=== PATIENT | female | born 1930 | race Caucasian/White ===

== ENCOUNTER 2016-08-26 11:55 | Emergency (ER) | payer MEDICARE, OTHER ==
[2016-05-26 09:46] VITALS: BMI 27.4
[~2016-08-26 11:55] MED LIST: AMITRIPTYLINE100 MG PO; ARICEPT10 MG PO; ARTANE2 MG; ARTANE2 MG PO; ATIVAN0.5 MG PO; AXID150 MG PO; BAYER CHEWABLE81 MG; BAYER CHEWABLE81 MG PO; CARAFATE1 G PO; CATAPRES0.1 MG; CATAPRES0.1 MG PO; CELEBREX200 MG PO; DULCOLAX10 MG/SUPP RC; ESTRACE1 MG PO; FERROUS SULFAT325 MG PO; FLOMAX0.4 MG PO; HYDROCODON-ACE1 EAC7 PO; KLOR-CON M2020 MEQ PO; LEVAQUIN 5500 MG/100 IV; MACROBID100 MG PO; MIRALAX17 GM PO; MYSOLINE 50 MG50 MG PO; NYSTATIN ORAL SU5 ML PO; ONDANSETRON4 MG/2 M3 IV; PAMELOR10 MG PO; PLAVIX75 MG PO; PROTONIX40 MG PO; SENOKOT-S TABLE1 TAB PO; SODIUM CL 0.91000 ML IV; SYNTHROID112 MCG PO; SYNTHROID125 MCG PO; TRI-VI-SOL50 ML PO; TYLENOL 325 MG325 MG PO; TYLENOL 8 HOUR650 MG PO; TYLENOL325 MG PO; ULTRAM50 MG PO; URECHOLINE25 MG PO; ZOFRAN4 MG PO
[2016-08-26 12:42] LABS: APPEARANCE CLEAR (CLEAR); COLOR STRAW (YELLOW); LEUKOCYTE ESTERASE 2+ (NEGATIVE); SPECIFIC GRAVITY 1.005 (1.005-1.020)
[2016-08-26 12:43] LABS: BILIRUBIN NEGATIVE (NEGATIVE); GLUCOSE NEGATIVE (NEGATIVE); KETONE NEGATIVE (NEGATIVE); NITRITE POSITIVE (NEGATIVE); PROTEIN NEGATIVE (NEGATIVE); UROBILINOGEN NORMAL (NORMAL)
[2016-08-26 12:44] LABS: BACTERIA MODERATE /hpf (NONE SEEN); EPITHELIAL CELLS 0-5 /hpf (0-5); RED CELLS - URINE 0-5 /hpf (0-5); WHITE CELLS - URINE 0-5 /hpf (0-5)
[2016-08-26 12:49] LABS: BASOPHILS 1.1 % (0.0-2.0); EOSINOPHILS 3.2 % (0-7); HEMATOCRIT 34.5 % (36.0-48.0); HEMOGLOBIN 10.3 g/dL (12-16); IMMATURE GRANULOCYTES 0.1 % (0-5); LYMPHOCYTES 27.1 % (15-50); MCH 21.8 pg (26.0-34.0); MCHC 29.9 g/dL (31.0-37.0); MCV 73.1 fL (80.0-100.0); MEAN PLATELET VOLUME 10.8 fL (7.4-10.4); MONOCYTES 6.2 % (2-11); NEUTROPHILS 62.3 % (40-80); PLATELET COUNT 403 10x3/uL (130-400); RBC 4.72 10x6/uL (4.00-5.40); RDW 18.5 % (11.5-14.5); WBC 7.9 10x3/uL (4.8-10.8)
[2016-08-26 13:16] LABS: ALBUMIN 3.3 g/dL (3.4-5.0); ANION GAP 10.8 mmol/L (8-16); BILIRUBIN - TOTAL 0.29 mg/dL (0.2-1.3); CALCIUM 8.8 mg/dL (8.5-10.1); CARBON DIOXIDE 29.6 mmol/L (21.0-32.0); CREATININE - SERUM 0.9 mg/dL (0.6-1.3); POTASSIUM - SERUM 4.4 mmol/L (3.5-5.1); PROTEIN - SERUM 6.6 g/dL (6.4-8.2)
== END 2016-08-26 14:50 | disposition home or self-care (01) ==
LOC: D.ER 11:55
PROVIDERS: Emergency Medicine
DX: R53.1 Weakness (principal); D64.9 Anemia, unspecified; N39.0 Urinary tract infection, site not specified; G30.9 Alzheimer's disease, unspecified; F02.80 Dementia in other diseases classified elsewhere, unspecified severity, without behavioral disturbance, psychotic disturbance, mood disturbance, and anxiety; I10 Essential (primary) hypertension; G20 Parkinson's disease

== ENCOUNTER 2016-09-28 19:20 | Emergency (ER) | payer MEDICARE, OTHER ==
[2016-05-26 09:46] VITALS: BMI 27.4
== END 2016-09-28 20:05 | disposition home or self-care (01) ==
LOC: D.ER 19:20
DX: T83.9XXA Unspecified complication of genitourinary prosthetic device, implant and graft, initial encounter (principal); F03.90 Unspecified dementia, unspecified severity, without behavioral disturbance, psychotic disturbance, mood disturbance, and anxiety

== ENCOUNTER 2016-10-13 19:42 | Emergency (ER) | payer MEDICARE, OTHER ==
[2016-05-26 09:46] VITALS: BMI 27.4
[2016-10-13 20:34] LABS: BASOPHILS 0.3 % (0.0-2.0); EOSINOPHILS 0.3 % (0-7); HEMATOCRIT 33.3 % (36.0-48.0); IMMATURE GRANULOCYTES 0.3 % (0-5); LYMPHOCYTES 19.9 % (15-50); MONOCYTES 8.4 % (2-11); NEUTROPHILS 70.8 % (40-80); RBC 4.76 10x6/uL (4.00-5.40); RDW 20.5 % (11.5-14.5); WBC 11.8 10x3/uL (4.8-10.8)
[2016-10-13 20:46] LABS: PLATELET COUNT 231 10x3/uL (130-400)
[2016-10-13 21:05] LABS: ALBUMIN 3.5 g/dL (3.4-5.0); ANION GAP 13.8 mmol/L (8-16); BILIRUBIN - TOTAL 0.46 mg/dL (0.2-1.3); CALCIUM 8.8 mg/dL (8.5-10.1); CARBON DIOXIDE 24.1 mmol/L (21.0-32.0); CREATININE - SERUM 0.9 mg/dL (0.6-1.3); POTASSIUM - SERUM 3.9 mmol/L (3.5-5.1); PROTEIN - SERUM 7.1 g/dL (6.4-8.2)
== END 2016-10-13 21:56 | disposition home or self-care (01) ==
LOC: D.ER 19:42
PROVIDERS: Emergency Medicine
DX: J20.9 Acute bronchitis, unspecified (principal); G20 Parkinson's disease; F17.200 Nicotine dependence, unspecified, uncomplicated

== ENCOUNTER 2016-10-16 06:54 | Emergency (ER) | payer MEDICARE, OTHER ==
[2016-05-26 09:46] VITALS: BMI 27.4
== END 2016-10-16 08:54 | disposition home or self-care (01) ==
LOC: D.ER 06:54
DX: F03.90 Unspecified dementia, unspecified severity, without behavioral disturbance, psychotic disturbance, mood disturbance, and anxiety (principal); W19.XXXA Unspecified fall, initial encounter; Y93.89 Activity, other specified; Y92.129 Unspecified place in nursing home as the place of occurrence of the external cause; G20 Parkinson's disease; I10 Essential (primary) hypertension

== ENCOUNTER 2016-10-28 12:58 | Emergency (ER) | payer MEDICARE, OTHER ==
[2016-05-26 09:46] VITALS: BMI 27.4
[2016-10-28 13:43] LABS: BASOPHILS 1.1 % (0.0-2.0); EOSINOPHILS 4.6 % (0-7); HEMATOCRIT 34.6 % (36.0-48.0); HEMOGLOBIN 10.2 g/dL (12-16); IMMATURE GRANULOCYTES 0.3 % (0-5); MCH 20.8 pg (26.0-34.0); MCHC 29.5 g/dL (31.0-37.0); MCV 70.5 fL (80.0-100.0); MONOCYTES 8.1 % (2-11); NEUTROPHILS 60.9 % (40-80); RBC 4.91 10x6/uL (4.00-5.40); RDW 22.2 % (11.5-14.5); WBC 9.2 10x3/uL (4.8-10.8)
[2016-10-28 13:47] LABS: PLATELET COUNT 427 10x3/uL (130-400)
[2016-10-28 13:59] LABS: CALC OSMOLALITY 285 mosm/kg (275-300); CALCIUM 8.6 mg/dL (8.5-10.1); CARBON DIOXIDE 26.9 mmol/L (21.0-32.0); CHLORIDE - SERUM 106 mmol/L (98-107); GLUCOSE 93 mg/dL (74-106); POTASSIUM - SERUM 3.7 mmol/L (3.5-5.1); SODIUM 143 mmol/L (136-145); TROPONIN-I < 0.017 ng/mL (0.000-0.060); UREA NITROGEN 15 mg/dL (7-18); eGFR NON AFRICAN AMERICAN 56 mL/min (90-120)
== END 2016-10-28 15:10 | disposition home or self-care (01) ==
LOC: D.ER 12:58
PROVIDERS: Nurse Practitioner Acute Care
DX: Z03.89 Encounter for observation for other suspected diseases and conditions ruled out (principal); G30.9 Alzheimer's disease, unspecified; F02.80 Dementia in other diseases classified elsewhere, unspecified severity, without behavioral disturbance, psychotic disturbance, mood disturbance, and anxiety; I10 Essential (primary) hypertension; G20 Parkinson's disease

== ENCOUNTER 2016-11-16 18:25 | Emergency (ER) | payer MEDICARE, OTHER ==
[2016-05-26 09:46] VITALS: BMI 27.4
[2016-11-16 19:24] LABS: BASOPHILS 1.3 % (0.0-2.0); EOSINOPHILS 5.2 % (0-7); HEMATOCRIT 35.9 % (36.0-48.0); HEMOGLOBIN 10.6 g/dL (12-16); LYMPHOCYTES 32.8 % (15-50); MCH 21.5 pg (26.0-34.0); MCHC 29.5 g/dL (31.0-37.0); MCV 72.8 fL (80.0-100.0); MONOCYTES 8.6 % (2-11); NEUTROPHILS 52.1 % (40-80); PLATELET COUNT 362 10x3/uL (130-400); RBC 4.93 10x6/uL (4.00-5.40); RDW 21.9 % (11.5-14.5); WBC 7.4 10x3/uL (4.8-10.8)
[2016-11-16 19:41] LABS: ALBUMIN 3.3 g/dL (3.4-5.0); ALKALINE PHOSPHATASE 79 U/L (46-116); ALT (SGPT) 20 U/L (10-68); BILIRUBIN - TOTAL 0.25 mg/dL (0.2-1.3); CALC OSMOLALITY 280 mosm/kg (275-300); CALCIUM 8.7 mg/dL (8.5-10.1); CARBON DIOXIDE 27.2 mmol/L (21.0-32.0); CHLORIDE - SERUM 106 mmol/L (98-107); CREATININE - SERUM 1.1 mg/dL (0.6-1.3); GLUCOSE 97 mg/dL (74-106); POTASSIUM - SERUM 4.9 mmol/L (3.5-5.1); PROTEIN - SERUM 6.7 g/dL (6.4-8.2); SODIUM 140 mmol/L (136-145); UREA NITROGEN 17 mg/dL (7-18); eGFR NON AFRICAN AMERICAN 50 mL/min (90-120)
[2016-11-16 19:55] LABS: CHOL - HDL RATIO 2.7 ratio (2.3-4.1); CHOLESTEROL, TOTAL 165 mg/dL (0-200); CKMB 0.5 U/L (0.0-3.6); CREATINE KINASE 72 UL (21-215); HDL CHOLESTEROL 61 mg/dL (32-96); LDL CHOLESTEROL 96 mg/dL (0-100); LDL-HDL RATIO 1.6 ratio (1.5-3.5); TRIGLYCERIDE 44 mg/dL (30-200)
[2016-11-16 19:57] LABS: TROPONIN-I < 0.017 ng/mL (0.000-0.060)
== END 2016-11-16 20:43 | disposition home or self-care (01) ==
LOC: D.ER 18:25
PROVIDERS: Emergency Medicine
DX: R07.89 Other chest pain (principal); W19.XXXA Unspecified fall, initial encounter; Y93.89 Activity, other specified; Y92.129 Unspecified place in nursing home as the place of occurrence of the external cause; G30.9 Alzheimer's disease, unspecified; F02.80 Dementia in other diseases classified elsewhere, unspecified severity, without behavioral disturbance, psychotic disturbance, mood disturbance, and anxiety; I10 Essential (primary) hypertension; G20 Parkinson's disease

== ENCOUNTER 2016-11-19 17:47 | Emergency (ER) | payer MEDICARE, OTHER ==
[2016-05-26 09:46] VITALS: BMI 27.4
[2016-11-19 19:54] LABS: APPEARANCE HAZY (CLEAR); BILIRUBIN NEGATIVE (NEGATIVE); COLOR STRAW (YELLOW); GLUCOSE NEGATIVE (NEGATIVE); KETONE NEGATIVE (NEGATIVE); LEUKOCYTE ESTERASE 1+ (NEGATIVE); NITRITE NEGATIVE (NEGATIVE); PROTEIN TRACE mg/dL (NEGATIVE); SPECIFIC GRAVITY 1.005 (1.005-1.020); UROBILINOGEN NORMAL (NORMAL)
[2016-11-19 19:55] LABS: BACTERIA FEW /hpf (NONE SEEN); MUCUS <1+ /lpf (NONE SEEN); RED CELLS - URINE OCC /hpf (0-5)
== END 2016-11-19 21:03 | disposition home or self-care (01) ==
LOC: D.ER 17:47
PROVIDERS: Nurse Practitioner Family
DX: N39.0 Urinary tract infection, site not specified (principal); I10 Essential (primary) hypertension; G30.9 Alzheimer's disease, unspecified; F02.80 Dementia in other diseases classified elsewhere, unspecified severity, without behavioral disturbance, psychotic disturbance, mood disturbance, and anxiety; G20 Parkinson's disease

== ENCOUNTER → 2017-01-02 18:20 | Outpatient (CLI) | payer MEDICARE, OTHER ==
[2016-05-26 09:46] VITALS: BMI 27.4
[2017-01-02 19:46] LABS: APPEARANCE CLOUDY (CLEAR); COLOR DK YELLOW (YELLOW); LEUKOCYTE ESTERASE 1+ (NEGATIVE); NITRITE NEGATIVE (NEGATIVE); PROTEIN 1+ mg/dL (NEGATIVE)
[2017-01-02 19:47] LABS: BILIRUBIN NEGATIVE (NEGATIVE); GLUCOSE NEGATIVE (NEGATIVE); KETONE NEGATIVE (NEGATIVE)
[2017-01-02 19:48] LABS: BACTERIA MODERATE /hpf (NONE SEEN); EPITHELIAL CELLS 0-5 /hpf (0-5); RED CELLS - URINE 0-5 /hpf (0-5); WHITE CELLS - URINE 0-5 /hpf (0-5)
[2017-01-02 19:49] LABS: AMORPHOUS SEDIMENT <1+ /lpf (NONE SEEN)
== END | disposition home or self-care (01) ==
LOC: D.LABREF 18:20
PROVIDERS: Emergency Medicine
DX: N39.0 Urinary tract infection, site not specified (principal)

== ENCOUNTER 2017-03-11 20:51 | Emergency (ER) | payer MEDICARE, OTHER ==
[2016-05-26 09:46] VITALS: BMI 27.4
[2017-03-11 22:11] LABS: BASOPHILS 0.2 % (0-2); EOSINOPHILS 1.3 % (0-7); HEMATOCRIT 39.5 % (36.0-48.0); HEMOGLOBIN 12.1 g/dL (12-16); IMMATURE GRANULOCYTES 0.2 % (0-5); LYMPHOCYTES 15.4 % (15-50); MCH 21.8 pg (26.0-34.0); MCHC 30.6 g/dL (31.0-37.0); MCV 71.2 fL (80.0-100.0); MEAN PLATELET VOLUME 10.9 fL (7.4-10.4); MONOCYTES 4.7 % (2-11); NEUTROPHILS 78.2 % (40-80); RBC 5.55 10x6/uL (4.00-5.40); RDW 19.7 % (11.5-14.5); WBC 12.2 10x3/uL (4.8-10.8)
[2017-03-11 22:12] LABS: PLATELET COUNT 477 10x3/uL (130-400)
[2017-03-11 22:25] LABS: ALBUMIN 3.4 g/dL (3.4-5.0); ANION GAP 11.2 mmol/L (8-16); BILIRUBIN - TOTAL 0.3 mg/dL (0.2-1.3); CALCIUM 9.2 mg/dL (8.5-10.1); CARBON DIOXIDE 28.5 mmol/L (21.0-32.0); POTASSIUM - SERUM 3.7 mmol/L (3.5-5.1); PROTEIN - SERUM 7.6 g/dL (6.4-8.2)
== END 2017-03-11 23:18 | disposition home or self-care (01) ==
LOC: D.ER 20:51
PROVIDERS: Nurse Practitioner Acute Care
DX: J20.9 Acute bronchitis, unspecified (principal); G30.9 Alzheimer's disease, unspecified; F02.80 Dementia in other diseases classified elsewhere, unspecified severity, without behavioral disturbance, psychotic disturbance, mood disturbance, and anxiety; I10 Essential (primary) hypertension; R05 Cough; R09.89 Other specified symptoms and signs involving the circulatory and respiratory systems; G20 Parkinson's disease

== ENCOUNTER → 2017-03-24 20:37 | Outpatient (CLI) | payer MEDICARE, OTHER ==
[2016-05-26 09:46] VITALS: BMI 27.4
[2017-03-24 22:04] LABS: APPEARANCE HAZY (CLEAR); BILIRUBIN NEGATIVE (NEGATIVE); COLOR YELLOW (YELLOW); GLUCOSE NEGATIVE (NEGATIVE); KETONE NEGATIVE (NEGATIVE); LEUKOCYTE ESTERASE TRACE (NEGATIVE); NITRITE NEGATIVE (NEGATIVE); PROTEIN NEGATIVE (NEGATIVE); SPECIFIC GRAVITY 1.005 (1.005-1.020); UROBILINOGEN NORMAL (NORMAL)
[2017-03-24 22:08] LABS: BACTERIA FEW /hpf (NONE SEEN); EPITHELIAL CELLS 0-5 /hpf (0-5); RED CELLS - URINE OCC /hpf (0-5); WHITE CELLS - URINE 0-5 /hpf (0-5)
[2017-03-24 22:09] LABS: TRIPLE PHOSPHATE CRYSTALS 25-50 /hpf (NONE SEEN)
== END | disposition home or self-care (01) ==
LOC: D.LABREF 20:37
PROVIDERS: Emergency Medicine
DX: Z46.6 Encounter for fitting and adjustment of urinary device (principal); N31.8 Other neuromuscular dysfunction of bladder

== ENCOUNTER 2017-07-09 20:58 | Emergency (ER) | payer MEDICARE, OTHER ==
[2016-05-26 09:46] VITALS: BMI 27.4
[2017-07-09 21:29] LABS: BASOPHILS 0.5 % (0-2); EOSINOPHILS 1.9 % (0-7); HEMATOCRIT 35.2 % (36.0-48.0); HEMOGLOBIN 10.8 g/dL (12-16); IMMATURE GRANULOCYTES 0.2 % (0-5); LYMPHOCYTES 23.3 % (15-50); MCH 21.2 pg (26.0-34.0); MCHC 30.7 g/dL (31.0-37.0); MCV 69.2 fL (80.0-100.0); MEAN PLATELET VOLUME 10.5 fL (7.4-10.4); MONOCYTES 10.5 % (2-11); NEUTROPHILS 63.6 % (40-80); PLATELET COUNT 407 10x3/uL (130-400); RBC 5.09 10x6/uL (4.00-5.40); RDW 19.1 % (11.5-14.5); WBC 8.1 10x3/uL (4.8-10.8)
[2017-07-09 21:34] LABS: APPEARANCE CLEAR (CLEAR); BILIRUBIN NEGATIVE (NEGATIVE); COLOR STRAW (YELLOW); GLUCOSE NEGATIVE (NEGATIVE); KETONE NEGATIVE (NEGATIVE); NITRITE NEGATIVE (NEGATIVE); PROTEIN NEGATIVE (NEGATIVE); UROBILINOGEN NORMAL (NORMAL)
[2017-07-09 21:38] LABS: RED CELLS - URINE OCC /hpf (0-5); WHITE CELLS - URINE 0-5 /hpf (0-5)
[2017-07-09 21:39] LABS: AMORPHOUS SEDIMENT <1+ /lpf (NONE SEEN); BACTERIA FEW /hpf (NONE SEEN)
[2017-07-09 21:40] LABS: ALBUMIN 3.4 g/dL (3.4-5.0); ANION GAP 16.9 mmol/L (8-16); BILIRUBIN - TOTAL 0.36 mg/dL (0.2-1.3); CALCIUM 8.3 mg/dL (8.5-10.1); CREATININE - SERUM 0.9 mg/dL (0.6-1.3); POTASSIUM - SERUM 3.9 mmol/L (3.5-5.1); PROTEIN - SERUM 7.4 g/dL (6.4-8.2)
== END 2017-07-09 23:07 | disposition home or self-care (01) ==
LOC: D.ER 20:58
PROVIDERS: Emergency Medicine
DX: R19.7 Diarrhea, unspecified (principal); F03.90 Unspecified dementia, unspecified severity, without behavioral disturbance, psychotic disturbance, mood disturbance, and anxiety; I10 Essential (primary) hypertension; G20 Parkinson's disease

== ENCOUNTER 2017-07-14 16:36 | Emergency (ER) | payer MEDICARE, OTHER ==
[2016-05-26 09:46] VITALS: BMI 27.4
== END 2017-07-14 21:15 | disposition home or self-care (01) ==
LOC: D.ER 16:36
DX: K59.00 Constipation, unspecified (principal)

== ENCOUNTER → 2017-08-04 19:54 | Outpatient (CLI) | payer MEDICARE, OTHER ==
[2016-05-26 09:46] VITALS: BMI 27.4
[2017-08-04 21:09] LABS: APPEARANCE CLEAR (CLEAR); BILIRUBIN NEGATIVE (NEGATIVE); COLOR YELLOW (YELLOW); GLUCOSE NEGATIVE (NEGATIVE); KETONE NEGATIVE (NEGATIVE); NITRITE NEGATIVE (NEGATIVE); PROTEIN NEGATIVE (NEGATIVE); UROBILINOGEN NORMAL (NORMAL)
[2017-08-04 21:10] LABS: BACTERIA MODERATE /hpf (NONE SEEN); EPITHELIAL CELLS OCC /hpf (0-5); WHITE CELLS - URINE 0-5 /hpf (0-5)
== END | disposition home or self-care (01) ==
LOC: D.LABREF 19:54
PROVIDERS: Family Medicine
DX: Z87.440 Personal history of urinary (tract) infections (principal); Z46.6 Encounter for fitting and adjustment of urinary device

== ENCOUNTER → 2017-08-20 13:09 | Outpatient (CLI) | payer MEDICARE, OTHER ==
[2016-05-26 09:46] VITALS: BMI 27.4
[2017-08-20 14:07] LABS: APPEARANCE CLEAR (CLEAR); BILIRUBIN NEGATIVE (NEGATIVE); COLOR YELLOW (YELLOW); GLUCOSE NEGATIVE (NEGATIVE); KETONE NEGATIVE (NEGATIVE); NITRITE NEGATIVE (NEGATIVE); PROTEIN NEGATIVE (NEGATIVE); UROBILINOGEN NORMAL (NORMAL)
== END | disposition home or self-care (01) ==
LOC: D.LABREF 13:09
PROVIDERS: Family Medicine
DX: Z46.6 Encounter for fitting and adjustment of urinary device (principal); Z87.448 Personal history of other diseases of urinary system

== ENCOUNTER 2017-08-20 16:21 | Emergency (ER) | payer MEDICARE, OTHER ==
[2016-05-26 09:46] VITALS: BMI 27.4
[2017-08-20 22:02] LABS: APPEARANCE CLEAR (CLEAR); BILIRUBIN NEGATIVE (NEGATIVE); COLOR YELLOW (YELLOW); GLUCOSE NEGATIVE (NEGATIVE); KETONE NEGATIVE (NEGATIVE); NITRITE NEGATIVE (NEGATIVE); PROTEIN NEGATIVE (NEGATIVE); SPECIFIC GRAVITY 1.015 (1.005-1.020); UROBILINOGEN NORMAL (NORMAL)
== END 2017-08-20 22:25 | disposition home or self-care (01) ==
LOC: D.ER 16:21
PROVIDERS: Nurse Practitioner Family
DX: T83.89XA Other specified complication of genitourinary prosthetic devices, implants and grafts, initial encounter (principal)

== ENCOUNTER → 2017-08-26 10:41 | Outpatient (CLI) | payer MEDICARE, OTHER ==
[2016-05-26 09:46] VITALS: BMI 27.4
[2017-08-26 11:19] LABS: APPEARANCE CLEAR (CLEAR); BILIRUBIN NEGATIVE (NEGATIVE); COLOR YELLOW (YELLOW); GLUCOSE NEGATIVE (NEGATIVE); KETONE NEGATIVE (NEGATIVE); NITRITE NEGATIVE (NEGATIVE); PROTEIN NEGATIVE (NEGATIVE); UROBILINOGEN NORMAL (NORMAL); WHITE CELLS - URINE 0-5 /hpf (0-5)
[2017-08-26 11:20] LABS: BACTERIA MODERATE /hpf (NONE SEEN); EPITHELIAL CELLS 0-5 /hpf (0-5); HYALINE CAST OCC /lpf (NONE SEEN); MUCUS <1+ /lpf (NONE SEEN)
== END | disposition home or self-care (01) ==
LOC: D.LABREF 10:41
PROVIDERS: Family Medicine
DX: Z46.6 Encounter for fitting and adjustment of urinary device (principal)

== ENCOUNTER 2017-11-30 19:27 | Emergency (ER) | payer MEDICARE, OTHER ==
[2016-05-26 09:46] VITALS: BMI 27.4
== END 2017-11-30 22:24 | disposition home or self-care (01) ==
LOC: D.ER 19:27
DX: M25.551 Pain in right hip (principal); S00.83XA Contusion of other part of head, initial encounter; W01.0XXA Fall on same level from slipping, tripping and stumbling without subsequent striking against object, initial encounter; Y93.89 Activity, other specified; Y92.129 Unspecified place in nursing home as the place of occurrence of the external cause; R22.9 Localized swelling, mass and lump, unspecified; M54.2 Cervicalgia; I10 Essential (primary) hypertension; G20 Parkinson's disease

== ENCOUNTER → 2018-01-21 15:36 | Outpatient (CLI) | payer MEDICARE, OTHER ==
[2016-05-26 09:46] VITALS: BMI 27.4
[2018-01-21 16:28] LABS: APPEARANCE HAZY (CLEAR); BILIRUBIN NEGATIVE (NEGATIVE); COLOR YELLOW (YELLOW); GLUCOSE NEGATIVE (NEGATIVE); KETONE NEGATIVE (NEGATIVE); NITRITE POSITIVE (NEGATIVE); PROTEIN NEGATIVE (NEGATIVE); SPECIFIC GRAVITY 1.015 (1.005-1.020); UROBILINOGEN NORMAL (NORMAL)
[2018-01-21 16:29] LABS: BACTERIA MANY /hpf (NONE SEEN); EPITHELIAL CELLS OCC /hpf (0-5); RED CELLS - URINE 0-5 /hpf (0-5); WHITE CELLS - URINE 25-50 /hpf (0-5)
== END | disposition home or self-care (01) ==
LOC: D.LABREF 15:36
PROVIDERS: Emergency Medicine
DX: R30.0 Dysuria (principal)

== ENCOUNTER → 2018-02-23 13:28 | Outpatient (CLI) | payer MEDICARE, OTHER ==
[2016-05-26 09:46] VITALS: BMI 27.4
[2018-02-23 14:09] LABS: APPEARANCE CLOUDY (CLEAR); BILIRUBIN NEGATIVE (NEGATIVE); COLOR AMBER (YELLOW); GLUCOSE NEGATIVE (NEGATIVE); KETONE NEGATIVE (NEGATIVE); NITRITE NEGATIVE (NEGATIVE); PROTEIN NEGATIVE (NEGATIVE); UROBILINOGEN NORMAL (NORMAL)
[2018-02-23 14:11] LABS: BACTERIA FEW /hpf (NONE SEEN); EPITHELIAL CELLS OCC /hpf (0-5); RED CELLS - URINE 0-5 /hpf (0-5)
== END | disposition home or self-care (01) ==
LOC: D.LABREF 13:28
PROVIDERS: Emergency Medicine
DX: Z46.6 Encounter for fitting and adjustment of urinary device (principal); Z87.440 Personal history of urinary (tract) infections

== ENCOUNTER → 2018-04-26 19:15 | Outpatient (CLI) | payer MEDICARE, OTHER ==
[2016-05-26 09:46] VITALS: BMI 27.4
[2018-04-26 20:23] LABS: APPEARANCE CLEAR (CLEAR); BILIRUBIN NEGATIVE (NEGATIVE); COLOR YELLOW (YELLOW); GLUCOSE 100 mg/dL (NEGATIVE); KETONE NEGATIVE (NEGATIVE); NITRITE POSITIVE (NEGATIVE); PROTEIN NEGATIVE (NEGATIVE); SPECIFIC GRAVITY 1.015 (1.005-1.020); UROBILINOGEN NORMAL (NORMAL)
[2018-04-26 20:24] LABS: BACTERIA MANY /hpf (NONE SEEN); EPITHELIAL CELLS 0-5 /hpf (0-5); RED CELLS - URINE 0-5 /hpf (0-5); WHITE CELLS - URINE >50 /hpf (0-5); YEAST >1+ WITH HYPHAE /hpf (NONE SEEN)
== END | disposition home or self-care (01) ==
LOC: D.LABREF 19:15
PROVIDERS: Family Medicine
DX: N31.9 Neuromuscular dysfunction of bladder, unspecified (principal); R41.0 Disorientation, unspecified; Z43.5 Encounter for attention to cystostomy; R53.81 Other malaise

== ENCOUNTER 2018-11-17 23:49 | Emergency (ER) | payer MEDICARE, OTHER ==
[~2018-11-17] VITALS: Ht 160 cm; Wt 74.8 kg
[2018-11-17 23:54] VITALS: Ht 160 cm; Wt 74.8 kg
[2018-11-18 00:17] LABS: BASOPHILS 0.6 % (0-2); EOSINOPHILS 7.4 % (0-7); HEMATOCRIT 35.9 % (36.0-48.0); HEMOGLOBIN 11.4 g/dL (12-16); IMMATURE GRANULOCYTES 0.5 % (0-5); LYMPHOCYTES 26.1 % (15-50); MCH 24.1 pg (26.0-34.0); MCHC 31.8 g/dL (31.0-37.0); MCV 75.7 fL (80.0-100.0); MEAN PLATELET VOLUME 10.7 fL (7.4-10.4); MONOCYTES 8.4 % (2-11); PLATELET COUNT 348 10x3/uL (130-400); RBC 4.74 10x6/uL (4.00-5.40); RDW 18.5 % (11.5-14.5); WBC 8.5 10x3/uL (4.8-10.8)
[2018-11-18 00:26] LABS: APPEARANCE CLEAR (CLEAR); BILIRUBIN NEGATIVE (NEGATIVE); COLOR YELLOW (YELLOW); GLUCOSE NEGATIVE (NEGATIVE); KETONE NEGATIVE (NEGATIVE); NITRITE NEGATIVE (NEGATIVE); PROTEIN NEGATIVE (NEGATIVE); UROBILINOGEN NORMAL (NORMAL)
[2018-11-18 00:27] LABS: BACTERIA FEW /hpf (NONE SEEN); EPITHELIAL CELLS OCC /hpf (0-5); RED CELLS - URINE 0-5 /hpf (0-5)
[2018-11-18 00:34] LABS: ALBUMIN 3.2 g/dL (3.4-5.0); ANION GAP 12.8 mmol/L (8-16); BILIRUBIN - TOTAL 0.2 mg/dL (0.2-1.3); CALCIUM 8.2 mg/dL (8.5-10.1); CARBON DIOXIDE 24.8 mmol/L (21.0-32.0); CREATININE - SERUM 1.9 mg/dL (0.6-1.3); POTASSIUM - SERUM 4.6 mmol/L (3.5-5.1); PROTEIN - SERUM 6.8 g/dL (6.4-8.2)
[2018-11-18 02:07] VITALS: BP 115/91
== END 2018-11-18 02:08 | disposition home or self-care (01) ==
LOC: D.ER 23:49
PROVIDERS: Family Medicine
DX: N39.0 Urinary tract infection, site not specified (principal)

== ENCOUNTER → 2019-01-10 18:18 | Outpatient (CLI) | payer MEDICARE, OTHER ==
[2018-11-17 23:54] VITALS: BMI 27.4
[2019-01-10 18:54] LABS: APPEARANCE HAZY (CLEAR); BILIRUBIN NEGATIVE (NEGATIVE); COLOR YELLOW (YELLOW); GLUCOSE NEGATIVE (NEGATIVE); KETONE NEGATIVE (NEGATIVE); NITRITE NEGATIVE (NEGATIVE); PROTEIN NEGATIVE (NEGATIVE); UROBILINOGEN NORMAL (NORMAL)
[2019-01-10 18:55] LABS: BACTERIA FEW /hpf (NONE SEEN); EPITHELIAL CELLS 0-5 /hpf (0-5); WHITE CELLS - URINE 0-5 /hpf (0-5)
== END | disposition home or self-care (01) ==
LOC: D.LABREF 18:18
PROVIDERS: ATTEND Family Medicine
DX: Z43.5 Encounter for attention to cystostomy (principal)

== ENCOUNTER → 2019-03-03 18:20 | Outpatient (CLI) | payer MEDICARE, OTHER ==
[2018-11-17 23:54] VITALS: BMI 27.4
[2019-03-03 19:16] LABS: APPEARANCE HAZY (CLEAR); BILIRUBIN NEGATIVE (NEGATIVE); COLOR YELLOW (YELLOW); GLUCOSE NEGATIVE (NEGATIVE); KETONE NEGATIVE (NEGATIVE); NITRITE POSITIVE (NEGATIVE); PROTEIN NEGATIVE (NEGATIVE); RED CELLS - URINE 0-5 /hpf (0-5); UROBILINOGEN NORMAL (NORMAL); WHITE CELLS - URINE 25-50 /hpf (0-5)
[2019-03-03 19:17] LABS: BACTERIA MANY /hpf (NONE SEEN)
== END | disposition home or self-care (01) ==
LOC: D.LABREF 18:20
PROVIDERS: ATTEND Emergency Medicine
DX: Z43.5 Encounter for attention to cystostomy (principal)